=== PATIENT | female | born 1990 | race American Indian/Alaskan Native ===

== ENCOUNTER 2021-05-03 07:13 | Emergency (ER) | payer OTHER ==
[~2021-05-03] VITALS: Ht 172.7 cm; Wt 59.1 kg
[~2021-05-03 07:13] MED LIST: NORCO 325 MG-51 TAB PO; PROAIR HFA0.09 MG/AC IH; XANAX 1MG1 MG PO
[2021-05-03 07:18] VITALS: TEMP 98.2
[2021-05-03] MEDS ORDERED: PREDNISONE20 MG PO (08:08)
[2021-05-03] MEDS ORDERED: ZITHROMAX Z PA250 MG PO (08:34)
[2021-05-03 08:48] VITALS: BP 115/81; PULSE 101
== END 2021-05-03 08:55 | disposition home or self-care (01) ==
LOC: COL.ER 07:13
DX: J45.901 Unspecified asthma with (acute) exacerbation (principal); F17.210 Nicotine dependence, cigarettes, uncomplicated
CPT/HCPCS: J2930; J7120